=== PATIENT | female | born 1960 | race Caucasian/White ===

== ENCOUNTER 2021-06-26 10:26 | Inpatient (IN) ==
[2021-06-26] MEDS ORDERED: SODIUM CHLORIDE 0.9% 1000ML 1,000 ML IV SCH (11:30)
[2021-06-26] MEDS ORDERED: PROCHLORPERAZINE 5 MG/ML 2 ML VIAL IV STA (11:31)
[2021-06-26] MEDS ORDERED: diphenhydrAMINE 50 MG/ML VIAL IV STA (11:31)
[2021-06-26 12:19] LABS: Basophils # (auto) 0.01 K/uL (0-0.2); Basophils % (auto) 0.1 %; Eosinophils # (auto) 0.06 K/uL (0-0.5); Eosinophils % (auto) 0.6 %; Hematocrit (blood only) 45.3 % (37-47); Hemoglobin 15.5 g/dL (12.0-16.0); Immature Granulocytes # (auto) 0.02 K/uL (0.00-0.02); Immature Granulocytes % (auto) 0.2 %; Lymphocytes # (auto) 2.28 K/uL (1.2-3.4); Lymphocytes % (auto) 24.1 %; Mean Corpuscular Hemoglobin 29.9 pg (25-34); Mean Corpuscular Hgb Conc 34.2 g/dL (32-36); Mean Corpuscular Volume 87.5 fL (80-100); Mean Platelet Volume 9.7 fL (7.4-10.4); Monocytes # (auto) 0.76 K/uL (0.11-0.59); Neutrophils # (auto) 6.35 K/uL (1.4-6.5); Platelet Count 216 K/uL (130-400); RDW Coefficient of Variation 13.1 % (11.5-14.5); RDW Standard Deviation 41.8 fL (36.4-46.3); Red Blood Count 5.18 M/uL (4.2-5.4); White Blood Count 9.48 K/uL (4.8-10.8)
[2021-06-26 12:57] LABS: Albumin Globulin Ratio 1.4 (0.9-2); BUN Creatinine Ratio 18.6 (10-20); Bilirubin,Total 0.6 mg/dl (0.2-1.0); Calcium 9.3 mg/dl (8.5-10.1); Creatinine Clr Calc Pharmacy 105.4 ml/min; Est GFR (African American) 109.9 ml/min; Est GFR (Non-African American) 94.8 ml/min; Globulin 2.8 gm/dl (2.5-4.0); Potassium 3.7 mmol/L (3.5-5.1); Total Protein 6.8 gm/dl (6.0-8.3)
--- NOTE | 2021-06-26 13:36 | Emergency Department Note ---
Impression & Plan Headache, Blurred vision, right eye, Fatigue, Nausea, Cerebral artery occlusion with cerebral infarction ED Provider Note CHIEF COMPLAINT: Headache HISTORY OF PRESENT ILLNESS: Sameera Jason is a 61 year old female with history of HTN who presents to the Emergency Department for evaluation of a left frontal headache radiating into her left posterior scalp which has been persistent over the past 4 days. She also associates double vision in her right eye, worse when she moves her eyes laterally, fatigue, lack of appetite and intermittent nausea. She denies photophobia, aura, heightened sensation to sound, neck pain, fevers, chills, cough, chest pain, shortness of breath, abdominal pain, vomiting, diarrhea or urinary symptoms. No aphasia, difficulty with speech or swallowing, numbness/tingling above baseline, or weakness. Prior to the time of onset 4 days ago, the patient states that she was near someone with very strong perfume, which seemed to trigger her symptoms. At that point, she noted a dull headache which then progressed into more severe pain the following day. When the patient awoke on that following day (3 days prior), she then noted the double vision in her right eye and states that her head pain became much worse than any other headache she has ever experienced in the past. She did attempt to take ibuprofen and sat with an ice pack on her head all day. Since then, the patient states that her symptoms have continued, however her pain is more dull today than it had been on Saturday. She did take a dose of Tylenol PM last evening with little change in symptoms. Currently, she rates her discomfort as a 5/10 which worsens when she attempts to bend over. No other worsening/alleviating factors. The patient states that she has history of migraines during but those were always resolved after vomiting. She states that she has felt pain similarly to what she is experiencing today but never to this extent. The patient does have TIA listed in her medical history, however she states that she was unaware of this diagnosis and does not recall a past episode. She does not smoke. She is not on any anticoagulants/antiplatelets. REVIEW OF SYSTEMS: 10 systems were reviewed and were negative unless otherwise stated in HPI as above PHYSICAL EXAM: VITALS: Vitals are noted on the nurse's note and reviewed by myself. Vital signs stable. General: Resting in bed, appears uncomfortable but no acute distress Head/face: Normocephalic, atraumatic, no tenderness to palpation of the scalp, face is symmetric without droop ENT: Pupils 2mm and reactive to light with EOMI, no nystagmus, bilateral TMs clear without hemotympanum, oropharynx clear Neck: No mid-line cervical or perispinal tenderness to palpation, ROM intact without pain, no meningismus Resp: Good inspiratory effort on room air, lung sounds clear bilaterally CV: Regular rate and rhythm, peripheral pulses palpated Back: No midline tenderness to the thoracic spine, no midline tenderness to the lumbar spine, no obvious step-offs or deformities Abd: Soft, non-tender MSK/Neuro: No obvious long bone deformities. Moving all extremities with strength 5/5 and sensation intact throughout Neuro: Awake, alert and oriented x 3, interacting and answering questions appropriately, cranial nerves II-XII grossly intact Differential diagnosis includes migraine headache, meningitis, sinusitis, infar ct, ICH, SAH, infection, tumor, sinus thrombosis, arterial dissection, as well as other pathologies were considered EMERGENCY DEPARTMENT COURSE: Physical exam and history were performed. Nursing triage notes, EMR, and medication list were personally reviewed. Patient appears to have a left frontal headache radiating into her left posterior scalp which has been persistent over the past 4 days. She also associates double vision in her right eye, worse when she moves her eyes laterally, fatigue, lack of appetite and intermittent nausea. Additional history as described above. Physical exam as above. The patient was offered medication. IV access was established and she was given NSS 1 L, Compazine 10 mg and Benadryl 25 mg. Labs were obtained and reviewed by myself as below. Of note, no concern for leukocytosis with a WBC of 9.48. No concern for anemia with hemoglobin 15.5. Coagulation studies WNL. Electrolytes WNL. Renal indices stable. LFTs nondiagnostic. Urinalysis not concerning for acute infection, urine test negative. Given that the patient stated that this is the worst headache that she is ever experienced, we discussed obtaining imaging for further assessment. We also discussed that if the imaging did not show any acute findings, that she may need a lumbar puncture to rule out possible subarachnoid hemorrhage. The patient verbalized understanding agreement with this and agreed to start with imaging at this time. CT head and angiogram were obtained and reviewed by radiologist and myself as below. Imaging did show 3.3 x 2.1 cm acute to subacute left occipital lobe infarct. No hemorrhage or significant mass effect. Also showed moderate mu ltifocal stenosis of the intracranial vessels due to atherosclerosis. Upon reevaluation, the patient was feeling improved after receiving the medication and did not appear to have any additional acute symptoms. Vital signs remained stable. I discussed the results of the imaging with her at bedside as well as my attending, Dr. Simpson who was involved throughout the patient's course of care. Given the finding of the acute to subacute left subdural lobe infarct, she will benefit from continued management in the hospital, however unfortunately out of the window for thrombolytics such as TPA. I did contact Dr. Huertas of the [facility] hospitalist group who agreed to evaluate the patient for ongoing management. The patient verbalized her understanding and agreement with the above treatment plan. I also updated her family as she requested. The chart was completed utilizing [employer] Speech Voice Recognition Software. Grammatical errors, random word insertions, pronoun errors, and incomplete sentences are an occasional consequence of this system due to software limitations, ambient noise, and hardware issues. Any formal questions or concerns about the content, text, or information contained within the body of this dictation should be directly addressed to the provider for clarification. Past Med/Surg History Medical History Herpes zoster Pneumonia Salmonella gastroenteritis TIA (transient ischemic attack) Surgical History H/O: section Hx of cholecystectomy Family History Mother Breast cancer Myocardial infarction Denies family history of Ovarian cancer Prostate cancer Colorectal cancer Social History Smoking Status: Never smoker Second Hand Exposure: No; Hx Alcohol Use: No Hx Substance Use: No Preferred Language: Khmer Visual Impairment: No Limitations Hearing Ability: Normal marital status: Current Living Situation: Family current occupational status: employed Feels Safe at Home: Yes Childhood Exposure to Second-Hand Smoke: Yes Dental Care, Regularly: No Physical Activity Frequency: Daily Seatbelt Use: always Sunscreen Use: Yes Allergies Allergies Allergy/AdvReac Type Severity Reaction Status Date / Time Penicillins Allergy Intermediate SORES IN Verified 06/26/21 11:13 MOUTH, NUMBNESS Home Meds Home Medications Medication Instructions Recorded Confirmed minocycline 100 mg capsule 100 mg PO DAILY 06/26/21 06/26/21 Previous Rx's Medication Instructions Recorded hydrochlorothiazide 25 mg tablet 25 mg PO DAILY #30 tab 06/01/21 lisinopril 40 mg tablet 40 mg PO DAILY #30 tab 06/22/21 Results & Data (ED) Vital Signs Vital Signs - 24 hr 06/26/21 10:28 06/26/21 10:54 06/26/21 11:00 Temperature 36 C L Temperature Source Temporal Artery Scan Pulse Rate 97 H 75 75 Pulse Rate [Left Finger] Pulse Rate from SpO2 Sensor 76 74 Pulse Rhythm Regular Pulse Strength Normal Respiratory Rate 20 17 14 Respiratory Effort / Characteristics Non-Labored Spontaneous Respiratory Depth Normal Respiratory Pattern Regular Blood Pressure 149/89 H Blood Pressure [Right Arm] Blood Pressure Mean 109 Blood Pressure Mean [Right Arm] Blood Pressure Position Sitting Blood Pressure Position [Right Arm] Pulse Oximetry 99 97 98 Oxygen Delivery Method Room Air Room Air Room Air Sepsis Recent Fever Within 48 Hours No Sepsis New/Unexplained Change in Mental Status No Sepsis Action Taken by Nursing No Action Required 06/26/21 11:10 06/26/21 11:20 06/26/21 11:30 Temperature Temperature Source Pulse Rate 83 81 72 Pulse Rate [Left Finger] Pulse Rate from SpO2 Sensor 84 80 73 Pulse Rhythm Pulse Strength Respiratory Rate 16 15 14 Respiratory Effort / Characteristics Respiratory Depth Respiratory Pattern Blood Pressure Blood Pressure [Right Arm] Blood Pressure Mean Blood Pressure Mean [Right Arm] Blood Pressure Position Blood Pressure Position [Right Arm] Pulse Oximetry 97 99 100 Oxygen Delivery Method Room Air Room Air Room Air Sepsis Recent Fever Within 48 Hours Sepsis New/Unexplained Change in Mental Status Sepsis Action Taken by Nursing 06/26/21 11:40 06/26/21 11:50 06/26/21 11:54 Temperature Temperature Source Pulse Rate 72 79 83 Pulse Rate [Left Finger] 84 Pulse Rate from SpO2 Sensor 71 78 83 Pulse Rhythm Pulse Strength Respiratory Rate 14 16 18 Respiratory Effort / Characteristics Non-Labored Spontaneous Respiratory Depth Respiratory Pattern Blood Pressure 143/81 H Blood Pressure [Right Arm] 143/81 H Blood Pressure Mean 101 Blood Pressure Mean [Right Arm] 101 Blood Pressure Position Blood Pressure Position [Right Arm] Lying Pulse Oximetry 99 96 96 Oxygen Delivery Method Room Air Room Air Room Air Sepsis Recent Fever Within 48 Hours Sepsis New/Unexplained Change in Mental Status Sepsis Action Taken by Nursing 06/26/21 12:00 06/26/21 12:10 06/26/21 12:20 Temperature Temperature Source Pulse Rate 75 74 65 Pulse Rate [Left Finger] Pulse Rate from SpO2 Sensor 75 Pulse Rhythm Pulse Strength Respiratory Rate Respiratory Effort / Characteristics Respiratory Depth Respiratory Pattern Blood Pressure 145/74 H Blood Pressure [Right Arm] Blood Pressure Mean 97 Blood Pressure Mean [Right Arm] Blood Pressure Position Blood Pressure Position [Right Arm] Pulse Oximetry 98 98 98 Oxygen Delivery Method Room Air Room Air Sepsis Recent Fever Within 48 Hours Sepsis New/Unexplained Change in Mental Status Sepsis Action Taken by Nursing 06/26/21 12:30 06/26/21 12:40 06/26/21 12:50 Temperature Temperature Source Pulse Rate 65 65 67 Pulse Rate [Left Finger] Pulse Rate from SpO2 Sensor Pulse Rhythm Pulse Strength Respiratory Rate 18 16 13 Respiratory Effort / Characteristics Respiratory Depth Respiratory Pattern Blood Pressure Blood Pressure [Right Arm] Blood Pressure Mean Blood Pressure Mean [Right Arm] Blood Pressure Position Blood Pressure Position [Right Arm] Pulse Oximetry 98 98 98 Oxygen Delivery Method Sepsis Recent Fever Within 48 Hours Sepsis New/Unexplained Change in Mental Status Sepsis Action Taken by Nursing 06/26/21 13:00 06/26/21 13:01 06/26/21 13:10 Temperature Temperature Source Pulse Rate 66 66 67 Pulse Rate [Left Finger] Pulse Rate from SpO2 Sensor Pulse Rhythm Pulse Strength Respiratory Rate 12 16 16 Respiratory Effort / Characteristics Respiratory Depth Respiratory Pattern Blood Pressure 132/73 Blood Pressure [Right Arm] Blood Pressure Mean 92 Blood Pressure Mean [Right Arm] Blood Pressure Position Blood Pressure Position [Right Arm] Pulse Oximetry 98 98 98 Oxygen Delivery Method Room Air Room Air Sepsis Recent Fever Within 48 Hours Sepsis New/Unexplained Change in Mental Status Sepsis Action Taken by Nursing 06/26/21 15:00 06/26/21 17:00 06/26/21 19:00 Temperature Temperature Source Pulse Rate Pulse Rate [Left Finger] 76 75 76 Pulse Rate from SpO2 Sensor Pulse Rhythm Pulse Strength Respiratory Rate 18 18 17 Respiratory Effort / Characteristics Non-Labored Spontaneous Respiratory Depth Respiratory Pattern Blood Pressure Blood Pressure [Right Arm] 122/80 128/77 129/81 Blood Pressure Mean Blood Pressure Mean [Right Arm] 94 94 97 Blood Pressure Position Blood Pressure Position [Right Arm] Sitting Pulse Oximetry 99 99 99 Oxygen Delivery Method Room Air Room Air Room Air Sepsis Recent Fever Within 48 Hours Sepsis New/Unexplained Change in Mental Status Sepsis Action Taken by Nursing Laboratory Data Result diagrams: 06/26/21 12:08 06/26/21 12:08 Lab Results 06/26/21 06/26/21 06/26/21 Range/Units 12:08 12:08 12:08 WBC 9.48 (4.8-10.8) K/uL RBC 5.18 (4.2-5.4) M/uL Hgb 15.5 (12.0-16.0) g/dL Hct 45.3 (37-47) % MCV 87.5 (80-100) fL MCH 29.9 (25-34) pg MCHC 34.2 (32-36) g/dL RDW Std Deviation 41.8 (36.4-46.3) fL RDW Coeff of Nisha 13.1 (11.5-14.5) % Plt Count 216 (130-400) K/uL MPV 9.7 (7.4-10.4) fL Immature Gran % (Auto) 0.2 % Neut % (Auto) 67.0 % Lymph % (Auto) 24.1 % [place] % (Auto) 8.0 % Eos % (Auto) 0.6 % Baso % (Auto) 0.1 % Neut # (Auto) 6.35 (1.4-6.5) K/uL Lymph # (Auto) 2.28 (1.2-3.4) K/uL [place] # (Auto) 0.76 H (0.11-0.59) K/uL Eos # (Auto) 0.06 (0-0.5) K/uL Baso # (Auto) 0.01 (0-0.2) K/uL Immature Gran # (Auto) 0.02 (0.00-0.02) K/uL PT Cancelled INR Cancelled APTT Cancelled PTT Ratio Cancelled Sodium 137 (136-145) mmol/L Potassium 3.7 (3.5-5.1) mmol/L Chloride 103 (98-107) mmol/L Carbon Dioxide 25 (21-32) mmol/L Anion Gap 9 (3-11) BUN 13 (6-23) mg/dl Creatinine 0.70 (0.6-1.2) mg/dl Est Cr Clr Drug Dosing 105.4 ml/min Est GFR ( Amer) 109.9 ml/min Est GFR (Non-Af Amer) 94.8 ml/min BUN/Creatinine Ratio 18.6 (10-20) Glucose 124 H (70-99(Fasting)) mg/dl Calcium 9.3 (8.5-10.1) mg/dl Total Bilirubin 0.6 (0.2-1.0) mg/dl AST 20 (13-39) U/L ALT 20 (7-52) U/L Alkaline Phosphatase 54 (34-104) U/L Troponin I (0-0.04) ng/ml Total Protein 6.8 (6.0-8.3) gm/dl Albumin 4.0 (3.4-5.0) gm/dl Globulin 2.8 (2.5-4.0) gm/dl Albumin/Globulin Ratio 1.4 (0.9-2) Urine Color Urine Appearance (Clear) Urine pH (4.5-7.5) Ur Specific [place] (1.000-1.030) Urine Protein (Negative) Urine Glucose (UA) (Negative) Urine Ketones (Negative) Urine Blood (Negative) Urine Nitrite (Negative) Urine Bilirubin (Negative) Urine Urobilinogen (Negative) Ur Leukocyte Esterase (Negative) POC Ur Test (NEG) SARS-CoV-2, RNA, NAAT (NEGATIVE) 06/26/21 06/26/21 06/26/21 Range/Units 12:08 13:18 15:00 WBC (4.8-10.8) K/uL RBC (4.2-5.4) M/uL Hgb (12.0-16.0) g/dL Hct (37-47) % MCV (80-100) fL MCH (25-34) pg MCHC (32-36) g/dL RDW Std Deviation (36.4-46.3) fL RDW Coeff of Nisha (11.5-14.5) % Plt Count (130-400) K/uL MPV (7.4-10.4) fL Immature Gran % (Auto) % Neut % (Auto) % Lymph % (Auto) % [place] % (Auto) % Eos % (Auto) % Baso % (Auto) % Neut # (Auto) (1.4-6.5) K/uL Lymph # (Auto) (1.2-3.4) K/uL [place] # (Auto) (0.11-0.59) K/uL Eos # (Auto) (0-0.5) K/uL Baso # (Auto) (0-0.2) K/uL Immature Gran # (Auto) (0.00-0.02) K/uL PT 10.8 INR 1.1 APTT 26.1 PTT Ratio 1.0 Sodium (136-145) mmol/L Potassium (3.5-5.1) mmol/L Chloride (98-107) mmol/L Carbon Dioxide (21-32) mmol/L Anion Gap (3-11) BUN (6-23) mg/dl Creatinine (0.6-1.2) mg/dl Est Cr Clr Drug Dosing ml/min Est GFR ( Amer) ml/min Est GFR (Non-Af Amer) ml/min BUN/Creatinine Ratio (10-20) Glucose (70-99(Fasting)) mg/dl Calcium (8.5-10.1) mg/dl Total Bilirubin (0.2-1.0) mg/dl AST (13-39) U/L ALT (7-52) U/L Alkaline Phosphatase (34-104) U/L Troponin I < 0.03 (0-0.04) ng/ml Total Protein (6.0-8.3) gm/dl Albumin (3.4-5.0) gm/dl Globulin (2.5-4.0) gm/dl Albumin/Globulin Ratio (0.9-2) Urine Color Urine Appearance (Clear) Urine pH (4.5-7.5) Ur Specific [place] (1.000-1.030) Urine Protein (Negative) Urine Glucose (UA) (Negative) Urine Ketones (Negative) Urine Blood (Negative) Urine Nitrite (Negative) Urine Bilirubin (Negative) Urine Urobilinogen (Negative) Ur Leukocyte Esterase (Negative) POC Ur Test (NEG) SARS-CoV-2, RNA, NAAT NEGATIVE (NEGATIVE) 06/26/21 06/26/21 Range/Units 16:46 16:46 WBC (4.8-10.8) K/uL RBC (4.2-5.4) M/uL Hgb (12.0-16.0) g/dL Hct (37-47) % MCV (80-100) fL MCH (25-34) pg MCHC (32-36) g/dL RDW Std Deviation (36.4-46.3) fL RDW Coeff of Nisha (11.5-14.5) % Plt Count (130-400) K/uL MPV (7.4-10.4) fL Immature Gran % (Auto) % Neut % (Auto) % Lymph % (Auto) % [place] % (Auto) % Eos % (Auto) % Baso % (Auto) % Neut # (Auto) (1.4-6.5) K/uL Lymph # (Auto) (1.2-3.4) K/uL [place] # (Auto) (0.11-0.59) K/uL Eos # (Auto) (0-0.5) K/uL Baso # (Auto) (0-0.2) K/uL Immature Gran # (Auto) (0.00-0.02) K/uL PT INR APTT PTT Ratio Sodium (136-145) mmol/L Potassium (3.5-5.1) mmol/L Chloride (98-107) mmol/L Carbon Dioxide (21-32) mmol/L Anion Gap (3-11) BUN (6-23) mg/dl Creatinine (0.6-1.2) mg/dl Est Cr Clr Drug Dosing ml/min Est GFR ( Amer) ml/min Est GFR (Non-Af Amer) ml/min BUN/Creatinine Ratio (10-20) Glucose (70-99(Fasting)) mg/dl Calcium (8.5-10.1) mg/dl Total Bilirubin (0.2-1.0) mg/dl AST (13-39) U/L ALT (7-52) U/L Alkaline Phosphatase (34-104) U/L Troponin I (0-0.04) ng/ml Total Protein (6.0-8.3) gm/dl Albumin (3.4-5.0) gm/dl Globulin (2.5-4.0) gm/dl Albumin/Globulin Ratio (0.9-2) Urine Color Yellow Urine Appearance Clear (Clear) Urine pH 5.5 (4.5-7.5) Ur Specific [place] 1.038 H (1.000-1.030) Urine Protein Negative (Negative) Urine Glucose (UA) Negative (Negative) Urine Ketones 1+ H (Negative) Urine Blood Negative (Negative) Urine Nitrite Negative (Negative) Urine Bilirubin Negative (Negative) Urine Urobilinogen Negative (Negative) Ur Leukocyte Esterase Negative (Negative) POC Ur Test NEG (NEG) SARS-CoV-2, RNA, NAAT (NEGATIVE) Administered Medications Enoxaparin Sodium (Enoxaparin Inj 40 Mg/0.4 Ml Syr) 40 mg SQ Q24H IRVING Stop: 07/26/21 17:59 Last Admin: 06/26/21 18:05 Dose: 40 mg Documented by: [id number] Discontinued Medications Diphenhydramine HCl (Diphenhydramine 50 Mg/Ml Vial) 25 mg IV NOW STA Stop: 06/26/21 11:32 Last Admin: 06/26/21 11:49 Dose: 25 mg Documented by: [id number] Sodium Chloride (Nss 1000ml) 1,000 mls @ 999 mls/hr IV .Q1H1M IRVING Stop: 06/26/21 12:30 Last Infusion: 06/26/21 12:42 Dose: 0 mls/hr Documented by: [id number] Admin: 06/26/21 11:41 Dose: 999 mls/hr Documented by: [id number] Ioversol (Optiray 320 125ml) 120 ml IV ONCE ONE Stop: 06/26/21 13:55 Last Admin: 06/26/21 13:55 Dose: 120 ml Documented by: [id number] Prochlorperazine (Prochlorperazine 5 Mg/Ml 2 Ml Vial) 10 mg IV NOW STA Stop: 06/26/21 11:32 Last Admin: 06/26/21 11:51 Dose: 10 mg Documented by: [id number] Imaging Data Radiologist's Impression: Head CTA 06/26/21 11:26 CT OF THE HEAD WITHOUT CONTRAST AND CTA OF THE HEAD CLINICAL HISTORY: migraine with right blurred vision COMPARISON STUDY: Head CT March 18, 2014. TECHNIQUE: Unenhanced and arterial phase imaging of the head was performed. Intravenous injection of 120 cc Optiray 320 IV was uneventful. Sagittal and coronal reconstructions were viewed as well as maximal intensity projections on an independent 3-D workstation. Automated exposure control was utilized for the study. A dose lowering technique was utilized adhering to the principles of ALARA. FINDINGS: No acute intracranial hemorrhage is present. Note is made of a 3.3 x 2.1 cm hypodensity with loss of rodriguez-white differentiation within the left occipital lobe on axial image 13 of 32. This is new since head CT of March 18, 2014. Ventricular system is unremarkable. Basal cisterns are patent. There are no extra-axial collections. No significant calvarial abnormalities are present. Visualized portions of the sinuses and mastoid air cells are clear. No intracranial aneurysm or central vessel occlusion is noted. There is moderate stenosis of the left posterior cerebral artery shown on axial image 130 of 323. Moderate plaque within the bilateral cavernous carotids is noted without stenosis. There is moderate narrowing of the distal right vertebral artery. No dissection within the intracranial vessels is present. IMPRESSION: 1. 3.3 x 2.1 cm acute to subacute left occipital lobe infarct. No hemorrhage or significant mass effect. 2. Moderate multifocal stenoses of the intracranial vessels, as above, due to atherosclerosis. No central vessel occlusion. No intracranial aneurysm. ACT 112: Negative or not required by law. Electronically signed by: Fareed Ramey M.D. 06/26/2021 2:12 PM Brain MRI 06/26/21 16:15 MR brain wo con CLINICAL HISTORY: stroke TECHNIQUE: Multiplanar and multisequence MR images of the brain were obtained without intravenous contrast. Comparison: Comparison is made to CTA head 06/26/2021 FINDINGS: Restricted diffusion is seen in the left posterior cerebral artery distribution compatible with acute infarct. There is associated swelling. No hemorrhage is seen. No significant mass effect or midline shift is seen. Flow voids of the major intracranial arterial vessels are identified. The imaged portions of the paranasal sinuses, mastoid air cells, and orbits are unremarkable. IMPRESSION: Acute infarct in the left posterior cerebral artery distribution with associated swelling. No evidence of hemorrhagic transformation. ACT 112: Negative or not required by law. Electronically signed by: Ernie Newton M.D. 06/26/2021 6:58 PM Discharge Plan Visit Data Chief Complaint: Headache Stated Complaint: MIGRAINE FOR 2 DAYS, BLURRED VISION ED Provider: Sigrid Simpson ED Midlevel Provider: Marine Keane Discharge Problem: Headache, Blurred vision, right eye, Fatigue, Nausea, Cerebral artery occlusion with cerebral infarction Patient Disposition: Admitted As Inpatient Forms Stand Alone Forms: [facility] Prescriptions Prescriptions: No Action hydrochlorothiazide 25 mg tablet 25 mg PO DAILY Qty: 30 RF: 0 lisinopril 40 mg tablet 40 mg PO DAILY Qty: 30 RF: 0 minocycline 100 mg capsule 100 mg PO DAILY RF: 0 Referrals Referrals: Malgorzata Cho PA-C [Primary Care Provider] -
[2021-06-26 13:40] LABS: INR 1.1 (0.9-1.1); Partial Thromboplastin Time 26.1 Seconds (21.0-31.0); Prothrombin Time 10.8 Seconds (9.0-12.0)
[2021-06-26] MEDS ORDERED: OPTIRAY 320 125ml IV ONE (13:54)
--- NOTE | 2021-06-26 14:13 | CT Scan Report ---
CT OF THE HEAD WITHOUT CONTRAST AND CTA OF THE HEAD CLINICAL HISTORY: migraine with right blurred vision COMPARISON STUDY: Head CT March 18, 2014. TECHNIQUE: Unenhanced and arterial phase imaging of the head was performed. Intravenous injection of 120 cc Optiray 320 IV was uneventful. Sagittal and coronal reconstructions were viewed as well as max imal intensity projections on an independent 3-D workstation. Automated exposure control was utilized for the study. A dose lowering technique was utilized adhering to the principles of ALARA. FINDINGS: No acute intracranial hemorrhage is present. Note is made of a 3.3 x 2.1 cm hypodensity wit h loss of rodriguez-white differentiation within the left occipital lobe on axial image 13 of 32. This is new since head CT of March 18, 2014. Ventricular system is unremarkable. Basal cisterns are patent . There are no extra-axial collections. No significant calvarial abnormalities are present. Visualize d portions of the sinuses and mastoid air cells are clear. No intracranial aneurysm or central vessel occlusion is noted. There is moderate stenosis of the left posterior cerebral artery shown on axial image 130 of 323. Moderate plaque within the bilateral cave rnous carotids is noted without stenosis. There is moderate narrowing of the distal right vertebral a rtery. No dissection within the intracranial vessels is present. IMPRESSION: 1. 3.3 x 2.1 cm acute to subacute left occipital lobe infarct. No hemorrhage or significant mass effe ct. 2. Moderate multifocal stenoses of the intracranial vessels, as above, due to atherosclerosis. No carolann tral vessel occlusion. No intracranial aneurysm. ACT 112: Negative or not required by law. Electronically signed by: Fareed Ramey M.D. 06/26/2021 2:12 PM
[2021-06-26] MEDS ORDERED: PHARMACIST DISCHARGE MED REC CONSULT PRN (15:02)
--- NOTE | 2021-06-26 15:14 | History & Physical Report ---
Date of Service June 26, 2021 Assessment & Plan (1) Ischemic stroke: Plan: Patient is admitted with an ischemic stroke. Will place on ASA 81 mg PO daily atorvastatin 80 mg PO HS Will check A1C, echo, carotid ultrasound. CTA shows a left occipital stroke will order MRI consult neuro. stroke protocol ordered. (2) Hypertension: Plan: home meds on hold for permissive hypertension. will monitor (3) Homonymous hemianopsia due to recent cerebral infarction: Plan: as stated above. History of Present Illness Chief Complaint: vision changes Primary Care Provider: Malgorzata Cho PA-C 61 yo female with PMH described below. Patient reports she was at a theater show on Saturday evening when she smelled a strong perfume. Patient reported having a strong headahce. Patient reports having history of migraines. The headache worsened on the following day. This was accompanied by loss of peripheral vision on the right lateral visual field. Her headache gradually improved but due to her vision changes she decided to come in to the hospital Allergies Allergy/AdvReac Type Severity Reaction Status Date / Time Penicillins Allergy Intermediate SORES IN Verified 06/26/21 11:13 MOUTH, NUMBNESS Home Medications Medication Instructions Recorded Confirmed Type hydrochlorothiazide 25 mg tablet 25 mg PO DAILY #30 tab 06/01/21 06/26/21 Rx lisinopril 40 mg tablet 40 mg PO DAILY #30 tab 06/22/21 06/26/21 Rx minocycline 100 mg capsule 100 mg PO DAILY 06/26/21 06/26/21 History aspirin 81 mg tablet,delayed 81 mg PO QAM #30 tab 06/27/21 Rx release atorvastatin 40 mg tablet 80 mg PO HS #30 tab 06/27/21 Rx metformin 750 mg tablet,extended 750 mg PO PM #30 tab 06/27/21 Rx release 24 hr verapamil 120 mg 24 hr 120 mg PO DAILY #30 cap 06/27/21 Rx capsule,extended release Past Med/Surg History Medical History Herpes zoster Pneumonia Salmonella gastroenteritis TIA (transient ischemic attack) Surgical History H/O: section Hx of cholecystectomy Family History Mother Breast cancer Myocardial infarction Father , age 80 of asbestosis Pulmonary asbestosis Denies family history of Ovarian cancer Prostate cancer Colorectal cancer Social History Smoking Status: Never smoker Second Hand Exposure: No; Hx Alcohol Use: No Hx Substance Use: No Preferred Language: Kyrgyz Communication Ability: Effective Visual Impairment: No Limitations Hearing Ability: Normal Beliefs That Will Affect Care: None marital status: Current Living Situation: Spouse, Parent and Family Current Living Situation Comment: lives at home with , child, and parent current occupational status: employed current occupation: jazz musician Feels Safe at Home: Yes Childhood Exposure to Second-Hand Smoke: Yes Dental Care, Regularly: No Physical Activity Frequency: Daily Seatbelt Use: always Sunscreen Use: Yes Assistive Devices: Cane and Walker Review of Systems Constitutional: no fever and no body aches Eyes: + blind spots and + diplopia Ear, Nose, Mouth, Throat: no ear pain Respiratory: no cough and no change in sputum Cardiovascular: no chest pain Gastrointestinal: no abdominal pain Genitourinary: no dysuria Musculoskeletal: no back pain Integumentary: no acne Neurologic: no gait abnormality Psychiatric: no behavioral changes Endocrine: no fatigue Hematologic / Lymphatic: no easy bleeding Allergy / Immunological: no GI upset with certain foods Physical Exam Constitutional: WD/WN, vitals as above Eyes: PERRL, conjunctivae normal, anicteric sclerae ENMT: external ear and nose normal, oropharynx normal Neck: trachea midline, no thyromegaly Respiratory: normal respiratory effort, lungs clear to auscultation Cardiovascular: RRR, no murmur, no edema Gastrointestinal (Abdomen): normal bowel sounds, soft, nontender, no hepatosplenomegaly Musculoskeletal: no cyanosis or clubbing, extremities motor strength 5/5 Skin: no rashes, warm and dry Neurologic: PERRL, EOMI, accommodation nl, no face palsy, no dysarthria Psychiatric: A+Ox3, euthymic affect Lymphatic: no cervical or axillary lymphadenopathy Results & Data Results & Data ([facility]) Vital Signs (Past 12 Hours) Vital Signs Temp Pulse Pulse Resp BP BP Pulse Ox 06/26/21 15:00 76 18 122/80 99 06/26/21 13:10 67 16 132/73 98 06/26/21 13:01 66 16 98 06/26/21 13:00 66 12 98 06/26/21 12:50 67 13 98 06/26/21 12:40 65 16 98 06/26/21 12:30 65 18 98 06/26/21 12:20 65 98 06/26/21 12:10 74 98 06/26/21 12:00 75 145/74 H 98 06/26/21 11:54 83 84 18 143/81 H 143/81 H 96 06/26/21 11:50 79 16 96 06/26/21 11:40 72 14 99 06/26/21 11:30 72 14 100 06/26/21 11:20 81 15 99 06/26/21 11:10 83 16 97 06/26/21 11:00 75 14 98 06/26/21 10:54 75 17 97 06/26/21 10:28 36 C L 97 H 20 149/89 H 99 PG Care Time/CCT Total # of Minutes Spent Total Time Spent with Patient: Total time spent is greater than 50% in coordination of care (as documented) at patient's floor/unit and/or counseling patient: Coding Level of Care Code 09030 Initial Inpt Care Lvl 3 Diagnoses Ischemic stroke I63.9 Hypertension I10 Homonymous hemianopsia due to recent cerebral infarction I69.398; H53.469
[2021-06-26 17:13] LABS: Appearance Urine Clear (Clear); Bilirubin Urine Negative (Negative); Blood Urine Negative (Negative); Color Urine Yellow; Glucose Urine UA Negative (Negative); Ketones Urine 1+ (Negative); Leukocyte Esterase Urine Negative (Negative); Nitrite Urine Negative (Negative); Protein Urine Negative (Negative); Specific Gravity Urine 1.038 (1.000-1.030); Urobilinogen Urine Negative (Negative); pH Urine 5.5 (4.5-7.5)
[2021-06-26] MEDS ORDERED: ENOXAPARIN INJ 40 MG/0.4 ML SYR SQ SCH (18:00)
--- NOTE | 2021-06-26 19:00 | Magnetic Resonance Report ---
MR brain wo con CLINICAL HISTORY: stroke TECHNIQUE: Multiplanar and multisequence MR images of the brain were obtained without intravenous con trast. Comparison: Comparison is made to CTA head 06/26/2021 FINDINGS: Restricted diffusion is seen in the left posterior cerebral artery distribution compatible with acute infarct. There is associated swelling. No hemorrhage is seen. No significant mass effect or midline shift is seen. Flow voids of the major intracranial arterial vessels are identified. The imaged portions of the para nasal sinuses, mastoid air cells, and orbits are unremarkable. IMPRESSION: Acute infarct in the left posterior cerebral artery distribution with associated swelling. No evidenc e of hemorrhagic transformation. ACT 112: Negative or not required by law. Electronically signed by: Ernie Newton M.D. 06/26/2021 6:58 PM
[2021-06-26] MEDS ORDERED: ATORVASTATIN 40 MG TAB PO SCH (21:00)
[2021-06-27 08:08] LABS: Basophils # (auto) 0.01 K/uL (0-0.2); Basophils % (auto) 0.1 %; Eosinophils # (auto) 0.11 K/uL (0-0.5); Eosinophils % (auto) 1.2 %; Hematocrit (blood only) 46.7 % (37-47); Hemoglobin 15.8 g/dL (12.0-16.0); Immature Granulocytes # (auto) 0.03 K/uL (0.00-0.02); Immature Granulocytes % (auto) 0.3 %; Lymphocytes # (auto) 2.86 K/uL (1.2-3.4); Lymphocytes % (auto) 32.1 %; Mean Corpuscular Hemoglobin 29.5 pg (25-34); Mean Corpuscular Hgb Conc 33.8 g/dL (32-36); Mean Corpuscular Volume 87.3 fL (80-100); Monocytes # (auto) 0.81 K/uL (0.11-0.59); Monocytes % (auto) 9.1 %; Neutrophils # (auto) 5.09 K/uL (1.4-6.5); Neutrophils % (auto) 57.2 %; Platelet Count 254 K/uL (130-400); RDW Coefficient of Variation 13.1 % (11.5-14.5); RDW Standard Deviation 41.8 fL (36.4-46.3); Red Blood Count 5.35 M/uL (4.2-5.4); White Blood Count 8.91 K/uL (4.8-10.8)
[2021-06-27 08:34] LABS: BUN Creatinine Ratio 21.3 (10-20); Calcium 8.4 mg/dl (8.5-10.1); Chol HDL Ratio 5.7 (0-5); Creatinine Clr Calc Pharmacy 90.7 ml/min; Est GFR (African American) 93.5 ml/min; Est GFR (Non-African American) 80.7 ml/min; Potassium 3.6 mmol/L (3.5-5.1)
--- NOTE | 2021-06-27 08:36 | Neurology Consultation ---
Date of Consultation June 27, 2021 Assessment & Plan (1) Ischemic stroke: (2) Homonymous hemianopsia due to recent cerebral infarction: (3) Hypertension: (4) Headache: this patient has had a mild to moderate sized left posterior cerebral artery distribution stroke centered around the left occipital lobe causing a partial right homonymous hemianopsia. This likely occurred June 23. She has no other focal neurologic deficits, meningeal signs, or encephalopathy. The etiology of the stroke is likely hypertensive small vessel ischemic disease. MRI shows some mild old small vessel ischemia diffusely. Blood pressure is better controlled today. the patient has a history of migraine headaches and this actually could have been a complicated migraine with vasospasm in the posterior cerebral artery on the left. The patient has had a history of stressors in her life and perhaps some anxiety and depression. the patient has elevated triglycerides at 1:59 and a total cholesterol 194. Finally, hemoglobin A1c is 7.4. Recommendations: 1. continue 81 milligram aspirin tablet daily. 2. In theory, the patient would be a high dose statin candidate and it is reasonable to continue atorvastatin 80 milligrams daily. 3. Control blood pressure as you are doing, aiming for a mean arterial pressure of 95-100. Verapamil is my drug of choice for prevention of vasospasm and this could be considered for treatment of her hypertension. 4. address elevated hemoglobin A1c and control glucose better. 5. the patient needs an ophthalmology or optometry exam with full visual isaac. The patient should not drive ( because of the homonymous hemianopsia) until visual isaac have markedly improved. 6. consider carotid ultrasound (or CT angiography of the neck) and echocardiogram to complete the stroke evaluation. 7. We can follow in Neurology as an outpatient in 2-3 weeks with the PA Overall, I spent a total of 100 minutes with this case including review of records, review of CT and MRI films, discussion of case with the patient and RN at bedside, and Dr. Anguiano, including differential diagnosis and treatment options. History of Present Illness Reason for Consultation: Patient is a 61-year-old, who I was asked to see the request of Dr. Anguiano, for neurologic consultation regarding stroke Requesting Physician: Dr. Anguiano Attending Physician: Guy Anguiano History of Present Illness patient has a longstanding history of hypertension on hydrochlorothiazide and lisinopril. She has been some optimally controlled recently. She has of stress with family issues. Patient has a history of migraine headaches stemming back when she was at age 41. Ever since, she has had intermittent migraines ( once every year or 2). The typical headache consists of the onset of pain of a throbbing nature, triggered by strong smells. Would be is steady pressure typically with nausea and vomiting at times. The vomiting, if present, would immediately improved her. She would have perhaps some photophobia but no phonophobia. Typical headache would last 1-2 days. she was doing very well without headaches for many months up until June 23. That day she was attending a theater production and was sitting conversing with someone who had very strong perfume. This triggered a vision episode where she could not see well to the right (not particularly blurry and not double ) lasting 30 minutes and then a significant left frontal headache occurred. It was a throbbing sensation without nausea or vomiting. she eventually went home laid down and slept. The next day she had a severe throbbing headache and the vision loss to the right had remained since the -. On the the headache was a little milder but it was present still on the and still she the vision Loss off to the right. She arrived to the emergency room June 26 1027 with a temperature of 36 pulse of 97, respiratory rate 20, blood pressure 149/89, and O2 saturation 90 percent. The patient a left frontal headache radiating to the left posterior scalp and she has had no other focal deficits. She described as her worst headache. CT scan of the head showed an acute to subacute left occipital hypodensity. CT angiography of the head revealed some atherosclerosis particularly in the left [employer] territory. CBC was unremarkable. Chem profile was remarkable only for glucose of 124. PT and PTT were unremarkable and urinalysis was unremarkable. MRI of the brain without contrast showed a 3 x 2 centimeter left posterior cerebral artery distribution stroke with some swelling and other portions of infarct within that left [employer] territory. Otherwise she had some mild old nonspecific small vessel ischemic changes in cerebral white matter bilaterally. I reviewed all CT and MRI films. Today blood pressure is 128/83 and she is afebrile. She complains of a mild headache only ( improved) she feels that her peripheral vision is a little bit better off to the right as well. Allergies Allergy/AdvReac Type Severity Reaction Status Date / Time Penicillins Allergy Intermediate SORES IN Verified 06/26/21 11:13 MOUTH, NUMBNESS Home Medications Medication Instructions Recorded Confirmed Type hydrochlorothiazide 25 mg tablet 25 mg PO DAILY #30 tab 06/01/21 06/26/21 Rx lisinopril 40 mg tablet 40 mg PO DAILY #30 tab 06/22/21 06/26/21 Rx minocycline 100 mg capsule 100 mg PO DAILY 06/26/21 06/26/21 History Patient History Medical History Herpes zoster Pneumonia Salmonella gastroenteritis TIA (transient ischemic attack) Surgical History H/O: section Hx of cholecystectomy Family History Mother Breast cancer Myocardial infarction Father , age 80 of asbestosis Pulmonary asbestosis Denies family history of Ovarian cancer Prostate cancer Colorectal cancer Social History Smoking Status: Never smoker Second Hand Exposure: No; Hx Alcohol Use: No Hx Substance Use: No Preferred Language: Occitan Communication Ability: Effective Visual Impairment: No Limitations Hearing Ability: Normal Beliefs That Will Affect Care: None marital status: Current Living Situation: Spouse, Parent and Family Current Living Situation Comment: lives at home with , child, and parent current occupational status: employed current occupation: director of instrumental music Feels Safe at Home: Yes Safety Concerns: Feels Safe At This Time Childhood Exposure to Second-Hand Smoke: Yes Dental Care, Regularly: No Physical Activity Frequency: Daily Seatbelt Use: always Sunscreen Use: Yes Assistive Devices: None Review of Systems Constitutional: no fever, no fatigue and no weakness Eyes: + worsening vision ( decreased vision to the right); no diplopia and no eye pain Ear, Nose, Mouth, Throat: no ear pain, no tinnitus, no hearing loss, no dizziness, no snoring, no hoarseness and no dysphagia Respiratory: no cough and no dyspnea Cardiovascular: no chest pain, no palpitations and no lightheadedness Gastrointestinal: no abdominal pain, no nausea and no vomiting Genitourinary: no dysuria, no urinary frequency and no urinary incontinence Musculoskeletal: no back pain, no neck pain, no radicular pain, no joint pain and no myalgia Integumentary: no rash and no lesions Neurologic: + headache(s); no gait abnormality, no localized weakness, no generalized weakness, no tingling, no numbness, no tremor(s), no abnormal movements, no abnormal speech, no confusion and no memory loss Psychiatric: no depression, no irritability, no anxiety, no difficulty concentrating, no confusion and no hallucinations Endocrine: no fatigue and no flushing Hematologic / Lymphatic: no easy bleeding and no easy bruising Allergy / Immunological: no urticaria and no problem reported Exam (Neuro) Physical Exam: The patient is right-handed. The patient is awake, alert, and attentive. Speech is normal without any aphasia or dysarthria. The patient can name objects, repeat phrases, and has normal spontaneous speech. Mentation and thought processes are intact, with orientation to person, place and time, and normal fund of knowledge. Attention and concentration are normal. Mood and affect are normal and appropriate. General appearance and grooming are normal. Short and long-term memory are intact. Pupils are 4 mm bilaterally and reactive to light. Extraocular eye muscles are intact without nystagmus. Visual acuity was reasonable but there was noticeable visual field defect bilaterally in each eye to the right. The left eye was more lateral and the right eye was more inferior/lateral There are no deficits to sensation in the face in all 3 distributions of the fifth cranial nerve bilaterally. Corneal reflexes are positive bilaterally. Facial strength and symmetry was normal bilaterally. Hearing seems normal bilaterally. Palate moves well without asymmetry. There is normal sternocleidomastoid and trapezius (shoulder shrug) strength bilaterally. Tongue is midline with good strength bilaterally. Neck has a full range of motion without discomfort. There are no cervical bruits bilaterally. There are no cranial or ocular bruits. Heart is without murmur. There is a regular rhythm and rate. Cervical, thoracic, and lumbar spine are nontender to palpation. Gait is narrow based, with good arm swing, turns, and stance. With outstretched arms there is no drift. There are no resting, postural, or action tremors. There is no ataxia with finger to nose testing. There is good facility in the hands. No other abnormal involuntary movements are noted. Motor strength is 5/5 diffusely in the arms bilaterally including deltoids, biceps, triceps, brachioradialis, wrist flexors and extensors, temperature inspector, and intrinsic hand muscles. Motor strength is 5/5 diffusely in the legs bilaterally including hip flexors, quadriceps, hamstrings, gastrocnemius, tibialis anterior, tibialis posterior, and Peroneii muscles. Toe extensors are normal and there is good bulk in the extensor digitorum brevis muscles bilaterally. The limbs have good tone without rigidity or spasticity. There is no atrophy noted in the muscles. Muscle bulk is normal, there is no tenderness to palpation, no myotonia to percussion, and no fasciculations seen. Sensory examination is intact to touch and pin throughout all 4 limbs diffusely. Reflexes are 0/4 in the biceps, triceps, brachioradialis, quadriceps, and Achilles tendons bilaterally. There is no clonus bilaterally. Toes are downgoing with plantar stimulation bilaterally. Peripheral pulses are present and of normal quality distally in all 4 limbs. There is no peripheral edema noted in the limbs. Results & Data ([facility]) Vital Signs (Past 12 Hours) Vital Signs Temp Pulse Pulse Resp BP Pulse Ox 06/27/21 07:00 37.0 C 68 18 128/83 95 06/27/21 03:25 36.6 C 72 18 125/81 99 06/26/21 23:24 36.9 C 75 18 102/65 96 06/26/21 23:02 71 06/26/21 20:44 71 PG Care Time/CCT Total # of Minutes Spent Total Time Spent with Patient: Total time spent is greater than 50% in coordination of care (as documented) at patient's floor/unit and/or counseling patient: Coding Level of Care Code 99800 Office/OBS Consult Lvl 5 Diagnoses Ischemic stroke I63.9 Homonymous hemianopsia due to recent cerebral infarction I69.398; H53.469 Hypertension I10 Headache R51.9 Time Spent (min) 100
[2021-06-27] MEDS ORDERED: ASPIRIN 81 MG ECTAB PO SCH (09:00)
[2021-06-27 09:02] LABS: Estimated Average Glucose 166 mg/dl; Hemoglobin A1C 7.4 % (4.5-5.6)
--- NOTE | 2021-06-27 12:22 | XCELERA ---
[id number]
--- NOTE | 2021-06-27 15:12 | Ultrasound Report ---
ULTRASOUND OF THE CAROTID ARTERIES CLINICAL HISTORY: stroke COMPARISON: None available at the time of this dictation. TECHNIQUE: Real-time, grayscale, and color Doppler sonography of the carotid arteries is performed. I mages are reviewed in the transverse and longitudinal planes. FINDINGS: The carotid arteries are patent bilaterally and demonstrate antegrade flow. There is mild atheroscler otic plaque on the right and mild atherosclerotic plaque on the left. Normal doppler arterial wavefor ms are seen throughout. Velocity measurements are listed below. Common carotid peak systolic velocity (cm/sec): RIGHT: 89 LEFT: 101 ICA peak systolic velocity (cm/sec): RIGHT: 75 LEFT: 64 ICA/CC peak systolic ratio: RIGHT: 0.8 LEFT: 0.6 Antegrade flow was shown in the vertebral arteries. The external carotid arteries are patent. IMPRESSION: 1. There is no sonographic evidence of hemodynamically significant stenosis in the right or left swanson tid arterial system. 2. Antegrade flow is shown in the vertebral arteries. Society of Radiologists in Ultrasound consensus guidelines: Normal: ICA PSV is <125 cm/sec and no plaque or intimal thickening is visible sonographically additional criteria include ICA/CCA PSV ratio <2.0 and ICA EDV <40 cm/sec <50% ICA stenosis: ICA PSV is <125 cm/sec and plaque or intimal thickening is visible sonographically additional criteria include ICA/CCA PSV ratio <2.0 and ICA EDV <40 cm/sec 50-69% ICA stenosis: ICA PSV is 125-230 cm/sec and plaque is visible sonographically additional criteria include ICA/CCA PSV ratio of 2.0-4.0 and ICA EDV of 40-100 cm/sec ?70% ICA stenosis but less than near occlusion: ICA PSV is >230 cm/sec and visible plaque and luminal narrowing are seen at rodriguez-scale and color Dopp ler ultrasound (the higher the Doppler parameters lie above the threshold of 230 cm/sec, the greater the likelihood of severe disease) additional criteria include ICA/CCA PSV ratio >4 and ICA EDV >100 cm/sec ACT 112: Negative or not required by law. Electronically signed by: Ernie Newton M.D. 06/27/2021 3:10 PM
[2021-06-27] MEDS ORDERED: STROKE PATIENT DISCHARGE STA (15:29)
--- NOTE | 2021-06-27 16:25 | Pharmacy Report ---
Pharmacist Stroke Counseling - Date of Service June 27, 2021 - Scope: Pharmacy has been consulted to provide medication discharge counseling for this patient admitted with transient ischemic attack as per the Pharmacist Discharge Counseling for Stroke Patients Protocol. - Medications on Discharge: Home Medications Medication Instructions Recorded Confirmed minocycline 100 mg capsule 100 mg PO DAILY 06/26/21 06/26/21 New Rx's Medication Instructions Recorded hydrochlorothiazide 25 mg tablet 25 mg PO DAILY #30 tab 06/01/21 lisinopril 40 mg tablet 40 mg PO DAILY #30 tab 06/22/21 aspirin 81 mg tablet,delayed 81 mg PO QAM #30 tab 06/27/21 release atorvastatin 40 mg tablet 80 mg PO HS #30 tab 06/27/21 metformin 750 mg tablet,extended 750 mg PO PM #30 tab 06/27/21 release 24 hr verapamil 120 mg 24 hr 120 mg PO DAILY #30 cap 06/27/21 capsule,extended release - Action: The above medications, specifically ones for stroke treatment/prophylaxis, have been reviewed in detail with the patient and/or patient high school admissions representative(s) prior to discharge. This includes indication, common adverse reactions, drug interactions, and medication administration. Medication counseling has been employed using the teach-back method to ensure understanding. - Outcome: The patient and/or patient high school admissions representative(s) have demonstrated understanding of the medications. Additional comments: Spoke with patient on phone regarding new medications. She did not have any questions regarding her new medicines. I did advise patient if she had questions she could talk with her pharmacist at [facility] when picking up her new scripts. Thank you for allowing pharmacy to be involved in the care of this patient. Please call [phone] with any additional questions
--- NOTE | 2021-07-01 20:02 | Discharge Summary ---
Date of Service June 27, 2021 Admission HPI Per Admitting Provider 61 yo female with PMH described below. Patient reports she was at a theater show on Saturday evening when she smelled a strong perfume. Patient reported having a strong headahce. Patient reports having history of migraines. The headache worsened on the following day. This was accompanied by loss of peripheral vision on the right lateral visual field. Her headache gradually improved but due to her vision changes she decided to come in to the hospital Principal Diagnosis Ischemic stroke Discharge Exam Constitutional WD/WN, vitals as above Eyes PERRL, conjunctivae normal, anicteric sclerae ENMT external ear and nose normal, oropharynx normal Neck trachea midline, no thyromegaly Respiratory normal respiratory effort, lungs clear to auscultation Cardiovascular RRR, no murmur, no edema Gastrointestinal (Abdomen) normal bowel sounds, soft, nontender, no hepatosplenomegaly Musculoskeletal no cyanosis or clubbing, extremities motor strength 5/5 Skin no rashes, warm and dry Neurologic PERRL, EOMI, accommodation nl, no face palsy, no dysarthria Psychiatric A+Ox3, euthymic affect Lymphatic no cervical or axillary lymphadenopathy Discharge Data Allergies Allergy/AdvReac Type Severity Reaction Status Date / Time Penicillins Allergy Intermediate SORES IN Verified 06/29/21 13:09 MOUTH, NUMBNESS Consultations 06/26/21 14:32 ED Decision to Admit Stat 06/26/21 15:02 Consult Neurology Routine Ordered Studies 06/26/21 11:26 CT angio head wo/w Stat 06/26/21 16:15 MR brain wo con Routine 06/27/21 13:30 US carotid doppler BI Routine Diabetes Follow up Diabetes Follow-up Needed for Newly Diagnosed Diabetes Hospital Course (1) Ischemic stroke: Patient is admitted with an ischemic stroke. Will place on ASA 81 mg PO daily atorvastatin 80 mg PO HS A1C: did show patient was diabetic Echo: echo showed no interatrial shunt/ LVH noted Carotid ultrasound: There is no sonographic evidence of hemodynamically significant stenosis in the right or left carotid arterial system. CTA shows a left occipital stroke MRI: Acute infarct in the left posterior cerebral artery distribution with associated swelling. No evidence of hemorrhagic transformation. consulted neuro: appreciate input. (2) Hypertension: home meds on hold for permissive hypertension. 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 (4) Diabetes mellitus with hyperglycemia: New onset Diabetes Mellitus .A1c : 7.4. Will place on metformin. recommend titrating up. Start 750 mg ER once daily on a full stomach. glucometer was given to patient, she will check it in the AM. Patient will also try lifestyle changes. Patient will followup [facility]. Total Time Total Time Spent Total Time Spent (In Minutes): 32 Discharge Plan Discharge Items Patient Disposition: Home - Self-Care Reason For Visit: SUBACUTE STROKE Discharge Diagnosis: subacute stroke Activity: Resume your previous activity Non-emergency contact: Primary Care Provider Call non-emergency contact if: you have any medication questions Follow-up/Referrals: Malgorzata Cho PA-C [Primary Care Provider] - 07/10/21 3:00 pm Diet: Carb Consistent or DM2 Addtl Attending Provider Instructions: Risk Factors for Stroke: You can reduce your chances of stroke by working with your medical provider to adopt a healthy lifestyle. Some specific ways to lower your chance of stroke are: * If you are a smoker, now is the time to stop smoking cigarettes * If you are diabetic, improve the control of your blood sugars * Avoid excessive amounts of alcohol * Control high blood pressure * Lose weight if you are overweight * Be sure to lead an active lifestyle * Eat a healthy diet low in salt, cholesterol and fat You should know about other risk factors for stroke that you are unable to control. These include: * Age 55 years or older * Male gender * Certain racial groups: , or / * Family History of Stroke, Mini stroke or Heart Attack * Sickle Cell Disease Follow Up: It is important for you to keep your follow up appointments with your medical provider. Who to Call and When: Medical Emergencies: Call 911 immediately if you experience any of the following warning signs and symptoms of Stroke: * Sudden numbness or weakness of the face, arm or leg, especially on one side of the body * Sudden confusion, trouble speaking or understanding * Sudden trouble seeing in one or both eyes * Sudden trouble walking, dizziness, loss of balance or coordination * Sudden severe headache with no cause Do not delay calling 911 if you experience any warning signs or symptoms of a stroke. Delay in seeking medical attention may affect what treatments can be given to you. . Please take metformin on a full stomach. Side effects: diarrhea, but the extended release version is much less likely, and taking it on a full stomach makes it even more rare. Recommend [facility] 1-2 weeks Will need followup with Opthalmology to discuss driving. For now no driving Neuro followup in 3-4 weeks Pending Studies at Discharge: No Stand-Alone Forms: Medications to Prevent Stroke, My [facility] [employer], Smoking Cessation Medications and DC Order Prescriptions: New atorvastatin 40 mg Tablet 80 mg PO HS Qty: 30 RF: 0 aspirin 81 mg Tablet,Delayed Release (Dr/Ec) 81 mg PO QAM Qty: 30 RF: 0 verapamil 120 mg capsule,ext rel. pellets 24 hr 120 mg PO DAILY Qty: 30 RF: 0 Continued minocycline 100 mg capsule 100 mg PO DAILY RF: 0 Changed lisinopril 40 mg tablet 20 mg PO DAILY Qty: 30 RF: 0 Discontinued hydrochlorothiazide 25 mg tablet 25 mg PO DAILY Qty: 30 RF: 0 No Action metformin 750 mg tablet extended release 24 hr 750 mg PO PM Qty: 30 RF: 5 clopidogrel [Plavix] 75 mg tablet 75 mg PO DAILY Qty: 14 RF: 0 Discharge Orders: Discharge Order (Routine); Ordered 06/27/21 Ordered By: Guy Valerio/Other Patient Handouts: Stroke and Heart Disease, Symptoms of Stroke, Exercise: Why Fitness Matters, Stroke Self Care After, Diabetes: Meal Planning, Type 2 Diabetes Admission Data Admit Date/Time: 06/26/21 17:30 Attending Provider: Guy Anguiano Admit Provider: Guy Anguiano Primary Care Provider: Malgorzata Cho Other Providers: Bijan Gross ; Madan Huertas Other Interventions: Discharge Summary Assessment (RN) Last Done: 06/27/21 17:10 Coding Level of Care Code D/C DAY MANAGEMENT >30 MINS Diagnoses Ischemic stroke I63.9 Hypertension I10 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
== END 2021-06-27 17:30 | disposition home or self-care (01) | DRG 66 ==
LOC: ED 10:26 → 2N 17:30